=== PATIENT | female | born 1945 | race Caucasian/White ===

== ENCOUNTER 2016-09-11 14:14 | Inpatient (IN) | payer OTHER ==
[~2016-09-11] VITALS: Ht 162.6 cm; Wt 89.4 kg
[~2016-09-11 14:14] MED LIST: CRESTOR5 MG PO; FUROSEMIDE40 MG PO; METFORMIN HCL500 MG PO; PERCOCET 10/1 TABLET PO; RAMIPRIL10 MG PO; ST. JOSEPH ASPI81 MG PO
[2016-09-11 14:51] LABS: POINT-OF-CARE METER ID UU13113778
[2016-09-11 15:02] LABS: HEMATOCRIT 46.6 % (36.0-46.0); MCH 30.3 PG (29.0-34.0); MCHC 32.8 G/DL (30.0-36.0); MCV 92.3 FL (83-99); MEAN PLAT.VOLUME 9.8 uM^3 (9.5-12.4); PLATELET COUNT 258 K/uL (156-360); RBC DIS.WIDTH-CV 12.9 % (11.8-14.6); RBC DIS.WIDTH-SD 43.6 % (39-53); RED BLOOD COUNT 5.05 M/uL (3.80-5.20); WHITE BLOOD COUNT 6.6 K/uL (4.1-10.2)
[2016-09-11 15:18] LABS: CHLORIDE 103 mEq/L (99-109); POTASSIUM 3.7 mEq/L (3.7-5.4); SODIUM 139 mEq/L (136-147)
[2016-09-11 15:21] LABS: GLUCOSE 97 mg/dL (70-99)
[2016-09-11 15:22] LABS: ANION GAP 9 MEQ/L (2-14)
[2016-09-11 15:23] LABS: TOTAL BILIRUBIN 0.3 mg/dL (0.0-1.0); TROP-I INTERPRETATION NEGATIVE; TROPONIN-I < 0.01 ng/mL (0.0-0.30)
[2016-09-11 15:24] LABS: ALKALINE PHOSPHATASE 83 IU/L (3-129); GFR ESTIMATE (CALCULATED) > 59 mL/min/
[2016-09-11 15:26] LABS: UREA NITROGEN (BUN) 14 mg/dL (9-23)
[2016-09-11 16:13] LABS: ADD MIUA? NO; BILIRUBIN NEGATIVE; BLOOD NEGATIVE; COLOR STRAW ((YELLOW)); GLUCOSE (STRIP) NEGATIVE; KETONES NEGATIVE; LEUKOCYTES NEGATIVE; NITRITE NEGATIVE; PROTEIN (STRIP) NEGATIVE; SPECIFIC GRAVITY 1.009 (1.000-1.030); UROBILINOGEN 0.2 MG/DL (0.2-1.0)
[2016-09-11] MEDS ORDERED: LASIX20 MG PO (17:25)
[2016-09-11] MEDS ORDERED: METFORMIN HCL500 MG PO (17:26)
[2016-09-11 21:55] VITALS: BP 134/65
[2016-09-11 23:41] VITALS: BP 125/58
[2016-09-12 03:28] VITALS: BP 132/62
[2016-09-12 07:18] LABS: Estimated Average Glucose 143 mg/dL (70-123); HDL CHOLESTEROL 45 MG/DL (Desirable>=50); HEMOGLOBIN A1c (GLYCOHEMOGLOB) 6.6 % HGB (Below 5.7); LDL CHOLESTEROL 76 mg/dL (Desirable<100); NON-HDL CHOLESTEROL 127 mg/dL (Desirable<160); TOTAL CHOLESTEROL 172 mg/dL (Desirable<200); TRIGLYCERIDES 255 MG/DL (Normal: <150)
[2016-09-12 07:28] VITALS: BP 134/64
[2016-09-12 12:33] LABS: COCAINE NEGATIVE (150 ng/mL); METHAMPHETAMINE NEGATIVE (500 ng/mL); PHENCYCLIDINE NEGATIVE (25 ng/mL); THC CANNABINOIDS NEGATIVE (50 ng/mL)
[2016-09-12 12:34] LABS: ADD MEDTOX COMMENT Y; AMPHETAMINE NEGATIVE (500 ng/mL); BARBITURATES NEGATIVE (200 ng/mL); BENZODIAZEPINES NEGATIVE (150 ng/mL); INTERNAL CONTROLS VALID? YES; METHADONE NEGATIVE (200 ng/mL); OPIATES (MORPHINE) PRESUMPTIVE POSITIVE (100 ng/mL); OXYCODONE PRESUMPTIVE POSITIVE (100 ng/mL); PROPOXYPHENE NEGATIVE (300 ng/mL); TRICYCLIC ANTIDEPRESSANTS NEGATIVE (300 ng/mL)
[2016-09-12 14:50] LABS: OPIATES QUANTITATIVE VALUE 0 NG/ML
[2016-09-12 15:54] VITALS: BP 136/62
[2016-09-12 17:52] LABS: POINT-OF-CARE METER ID UU14174225
[2016-09-12 19:28] VITALS: BP 124/59
[2016-09-12 23:21] VITALS: BP 111/55
[2016-09-13 03:26] VITALS: BP 132/63
[2016-09-13 08:04] VITALS: BP 132/60
[2016-09-13 09:07] LABS: POINT-OF-CARE METER ID UU14174225
[2016-09-13] MEDS ORDERED: ASPIR-LOW81 MG PO (11:19)
[2016-09-13 13:17] LABS: POINT-OF-CARE METER ID UU14174225
== END 2016-09-13 15:10 | disposition home or self-care (01) | DRG 66 ==
LOC: EME 14:14 → 5SOUTH 19:21 → EDOF 19:21 → 5SOUTH 21:44
PROVIDERS: Hospitalist; Internal Medicine; Nurse Practitioner Family; Physician Assistant Medical
DX: I63.9 Cerebral infarction, unspecified (principal); I73.9 Peripheral vascular disease, unspecified; R60.9 Edema, unspecified; I44.0 Atrioventricular block, first degree; I71.2 Thoracic aortic aneurysm, without rupture; E11.9 Type 2 diabetes mellitus without complications; I10 Essential (primary) hypertension; E78.5 Hyperlipidemia, unspecified; G89.29 Other chronic pain; M79.7 Fibromyalgia; R00.1 Bradycardia, unspecified; K21.9 Gastro-esophageal reflux disease without esophagitis; E66.9 Obesity, unspecified; R47.1 Dysarthria and anarthria; R41.0 Disorientation, unspecified; R47.01 Aphasia; M19.90 Unspecified osteoarthritis, unspecified site; Z87.891 Personal history of nicotine dependence; Z68.32 Body mass index [BMI] 32.0-32.9, adult
CPT/HCPCS: 70450; 70551; 71020; 80053; 80061; 80306 90; 81003; 82948; 83036; 84484; 84999; 85027; 92610 GN; 93005; 93306; 93880; J1644; J1815; S0028